=== PATIENT | female | born 1950 | race Caucasian/White ===

== ENCOUNTER → 2020-07-30 | Outpatient (CLI) | payer MEDICARE, OTHER ==
[~2020-07-30] MED LIST: AMITRIPTYLINE100 MG PO; ATORVASTATIN CA20 MG PO; CYMBALTA 20 MG20 MG PO; ECOTRIN81 MG PO; ESTRADIOL0.5 MG PO; HYDROCHLOROTHIA25 MG PO; MECLIZINE HCL12.5 MG PO; METFORMIN HCL1000 MG PO; MULTIVITAMIN1 EACH PO; TOPAMAX100 MG PO
== END ==
LOC: KOH-I 14:31
DX: M79.671 Pain in right foot (principal); M25.511 Pain in right shoulder
CPT/HCPCS: 73030; 73620

== ENCOUNTER → 2020-09-17 | Outpatient (CLI) | payer MEDICARE, OTHER | LOC: KOH-I 09:00 | DX: M75.101 Unspecified rotator cuff tear or rupture of right shoulder, not specified as traumatic (principal); S46.911A Strain of unspecified muscle, fascia and tendon at shoulder and upper arm level, right arm, initial encounter | CPT/HCPCS: 73221 ==

== ENCOUNTER → 2020-12-17 | Outpatient (CLI) | payer MEDICARE, OTHER | LOC: KOH-I 12:36 | DX: M25.551 Pain in right hip (principal); M16.11 Unilateral primary osteoarthritis, right hip | CPT/HCPCS: 73502 ==

== ENCOUNTER → 2021-01-20 | Outpatient (CLI) | payer MEDICARE, OTHER ==
[~2021-01-20] MED LIST changes: +APPLE CIDER VI1 EACH PO; -ATORVASTATIN CA20 MG PO; +ATORVASTATIN CA40 MG PO; -CYMBALTA 20 MG20 MG PO; +CYMBALTA 30 MG30 MG PO; +GLIPIZIDE10 MG PO; +HYDROCHLOROTH12.5 MG PO; -HYDROCHLOROTHIA25 MG PO; +LISINOPRIL2.5 MG PO; -MECLIZINE HCL12.5 MG PO; +MECLIZINE HCL25 MG PO; +MELATONIN10 M2 PO; +PROPRANOLOL HCL10 MG PO; -TOPAMAX100 MG PO; +TOPAMAX50 MG PO
[2021-01-20 12:02] LABS: HEMOGLOBIN 13.3 gm/dl (12.3-15.3); RED BLOOD COUNT 4.44 M/UL (4.00-5.10); WHITE BLOOD COUNT 10.1 K/UL (4.5-11.0)
== END ==
LOC: OPSV2 11:00
PROVIDERS: Orthopaedic Surgery
DX: Z01.818 Encounter for other preprocedural examination (principal); M75.101 Unspecified rotator cuff tear or rupture of right shoulder, not specified as traumatic
CPT/HCPCS: 36415; 80048; 83036; 85025; 87081; 93005

== ENCOUNTER → 2021-02-17 | Day surgery (SDC) | payer MEDICARE, OTHER ==
[~2021-02-17] VITALS: Ht 147.3 cm; Wt 69.4 kg
[2021-02-17 09:07] LABS: HEMOGLOBIN 13.2 gm/dl (12.3-15.3); RED BLOOD COUNT 4.42 M/UL (4.00-5.10); WHITE BLOOD COUNT 10.1 K/UL (4.5-11.0)
== END | disposition home or self-care (01) ==
LOC: OR 02-03 07:30
PROVIDERS: Orthopaedic Surgery
DX: E11.618 Type 2 diabetes mellitus with other diabetic arthropathy (principal); M75.121 Complete rotator cuff tear or rupture of right shoulder, not specified as traumatic; I10 Essential (primary) hypertension; E78.5 Hyperlipidemia, unspecified; Z79.84 Long term (current) use of oral hypoglycemic drugs; Z79.899 Other long term (current) drug therapy
CPT/HCPCS: 73020; 80048; 82962; 85027; 97161; 97165; C1713; C1776; J0690; J1100; J1885; J2370; J2405; J2704; J2710; J2795; J3370; J7120

== ENCOUNTER → 2021-09-08 | Outpatient (CLI) | payer MEDICARE, OTHER ==
[2021-09-08 14:41] LABS: HEMOGLOBIN 12.3 gm/dl (12.3-15.3); RED BLOOD COUNT 4.21 M/UL (4.00-5.10); WHITE BLOOD COUNT 6.8 K/UL (4.5-11.0)
== END ==
LOC: MRI 13:46
PROVIDERS: Nurse Practitioner Family
DX: E78.2 Mixed hyperlipidemia (principal); E11.22 Type 2 diabetes mellitus with diabetic chronic kidney disease; I12.9 Hypertensive chronic kidney disease with stage 1 through stage 4 chronic kidney disease, or unspecified chronic kidney disease; E11.65 Type 2 diabetes mellitus with hyperglycemia; N18.31 Chronic kidney disease, stage 3a; R29.6 Repeated falls
CPT/HCPCS: 36415; 70553; 80053; 80061; 85025; A9577